=== PATIENT | female | born 1975 | race Caucasian/White ===

== ENCOUNTER 2019-04-26 02:35 | Emergency (ER) | payer SELFPAY ==
[~2019-04-26] VITALS: Ht 167.6 cm; Wt 99.8 kg
[2019-04-26 02:40] VITALS: BP 113/80
--- NOTE | 2019-04-26 02:53 | NUR ---
PT TAKEN TO BED 11
--- NOTE | 2019-04-26 03:07 | NUR ---
43 Y/O F SAMO[place]-SPEAKING ONLY, PRESENTS TO THE ED C/O LEFT FACIAL PAIN 8/10 X 3 DAYS. PT DENIES ANY TRAUMA OR INJURIES. NO FACIAL DROOP NOTED, PUPILS REACTIVE, NO TROUBLE SPEAKING, SPEECH IS CLEAR. STEADY GAIT. PT ALSO STATES BEING CONGESTED X 2 WEEKS. PT DENIES COUGH, FEVER, N/V/D. BED IN LOWEST POSITION, SIDE RAIL UP X1. HX: DIABETES, BS: 259 ALLERGIES: NKA
[2019-04-26] MEDS ORDERED: KETOROLAC 30 MG/ML VIAL IM ONE (03:15)
--- NOTE | 2019-04-26 03:28 | NUR ---
PT TRANSPORTED TO CT VIA WHEELCHAIR.
--- NOTE | 2019-04-26 03:48 | NUR ---
PT RETURNED BACK FROM CT VIA W/C.
--- NOTE | 2019-04-26 04:32 | NUR ---
PT RESTING IN BED, NO RESPIRATORY DISTRESS NOTED. BED IN LOWEST POSITION, SIDE RAIL UP X1. NO NEW CONCERNS AT THIS TIME. WILL CONTINUE TO MONITOR.
[2019-04-26] MEDS ORDERED: cefTRIAXone 1,000 MG in LIDOCAINE MPF 1% 2.1 ML IM ONE (05:10)
[2019-04-26] MEDS ORDERED: cefTRIAXone 1,000 MG VIAL ONE (05:12)
[2019-04-26] MEDS ORDERED: LIDOCAINE MPF 1% 5 ML ONE (05:13)
[2019-04-26 05:50] VITALS: BP 120/74
--- NOTE | 2019-04-26 05:51 | NUR ---
Patient discharged with v/s stable. Written and verbal after care instructions given and explained. Patient alert, oriented and verbalized understanding of instructions. Ambulatory with steady gait. All questions addressed prior to discharge. ID band removed. Patient advised to follow up with PMD. Rx of AFRIN, NAPROSYN, PREDNISONE, AUGMENTIN given. Patient educated on indication of medication including possible reaction and side effects. Opportunity to ask questions provided and answered.
== END 2019-04-26 05:51 | disposition home or self-care (01) ==
LOC: MED 02:35
DX: J01.90 Acute sinusitis, unspecified (principal); E11.9 Type 2 diabetes mellitus without complications
CPT/HCPCS: 70486; 81025; 96372; 99284; J0696; J1885; J2001

== ENCOUNTER 2023-02-11 14:11 | Emergency (ER) | payer MEDICAID ==
[~2023-02-11] VITALS: Ht 167.6 cm; Wt 90.7 kg
[2023-02-11 14:25] VITALS: BP 116/87; PULSE 88; RESP 18; TEMP 97; O2SAT 98
[2023-02-11] MEDS ORDERED: NACL 0.9% 1,000 ML IV SCH (14:40)
[2023-02-11] MEDS ORDERED: ONDANSETRON 4 MG/2 ML VIAL IVP ONE (14:40)
[2023-02-11] MEDS ORDERED: KETOROLAC 30 MG/ML VIAL IVP ONE (14:40)
[2023-02-11 14:54] VITALS: BP 116/87; TEMP 97
[2023-02-11 15:05] VITALS: O2SAT 98
[2023-02-11 15:12] LABS: BASOPHILS # (AUTO) 0.1 K/uL (0.00-0.22); BASOPHILS % (AUTO) 0.5 % (0.0-2.0); EOSINOPHILS # (AUTO) 0.1 K/uL (0-0.4); EOSINOPHILS % (AUTO) 1.1 % (0.0-4.0); HEMATOCRIT 36.5 % (36-48); HEMOGLOBIN 12.1 g/dL (12.0-16.0); LYMPHOCYTES # (AUTO) 3.9 K/uL (2.5-16.5); LYMPHOCYTES % (AUTO) 36.7 % (20.5-51.1); MEAN CORPUSCULAR HEMOGLOBIN 26 pg (27-31); MEAN CORPUSCULAR HGB CONC 33 g/dL (33-37); MEAN CORPUSCULAR VOLUME 77.9 fL (80-94); MONOCYTES # (AUTO) 0.6 K/uL (0.8-1.0); MONOCYTES % (AUTO) 5.9 % (1.7-9.3); NEUTROPHILS # (AUTO) 5.9 K/uL (1.8-7.7); NEUTROPHILS % (AUTO) 55.8 % (42.2-75.2); PLATELET COUNT (AUTO) 203 K/uL (140-450); RED BLOOD CELL COUNT(AUTO) 4.69 MIL/uL (4.20-5.40); RED CELL DISTRIBUTION WIDTH 14.7 % (11.6-13.7); WHITE BLOOD COUNT (AUTO) 10.5 K/uL (4.8-10.8)
[2023-02-11 15:28] LABS: ANION GAP 15.1 (8-16); CALCIUM 8.9 mg/dL (8.5-10.1); CARBON DIOXIDE 23.4 mmol/L (21-32); CREATININE 0.6 mg/dL (0.6-1.3); POTASSIUM 3.5 mmol/L (3.5-5.1)
[2023-02-11 15:35] LABS: ALBUMIN 3.2 g/dL (3.4-5.0); BILIRUBIN,DIRECT 0.1 mg/dL (0.0-0.3); TOTAL BILIRUBIN 0.5 mg/dL (0.0-1.0); TOTAL PROTEIN, SERUM 8.8 g/dL (6.4-8.2)
[2023-02-11] MEDS ORDERED: OMEP20EC11 PO (17:19)
[2023-02-11 18:52] LABS: APPEARANCE,URINE CLEAR (CLEAR); BILIRUBIN,URINE NEGATIVE (NEGATIVE); BLOOD, URINE NEGATIVE (NEGATIVE); COLOR,URINE YELLOW (YELLOW); LEUKOCYTE ESTERASE ,URINE TRACE (NEGATIVE); NITRITE, URINE NEGATIVE (NEGATIVE); PROTEIN,URINE NEGATIVE (NEGATIVE); UGLUCOSE NEGATIVE (NEGATIVE); UROBILINOGEN,URINE 0.2 EU/dL (0.2 - 1)
[2023-02-11 18:54] LABS: BACTERIA,URINE 0-2 /HPF (None Seen); MUCUS,URINE None Seen /LPF (None Seen); RBC,URINE 0 /HPF (0-5); SQUAMOUS EPITHELIAL CELL,UR 0-3 (FEW) /LPF (0-3 (FEW)); WBC,URINE 0-5 /HPF (0-5)
[2023-02-11 19:43] VITALS: PULSE 79; RESP 15; O2SAT 100
== END 2023-02-11 19:41 | disposition home or self-care (01) ==
LOC: MED 14:11
DX: K29.70 Gastritis, unspecified, without bleeding (principal); E11.9 Type 2 diabetes mellitus without complications; Z79.899 Other long term (current) drug therapy
CPT/HCPCS: 36415; 74176; 76705; 80048; 80076; 81001; 81025; 82150; 83690; 85025; 96361; 96374; 96375; 99285; J1885; J2405; J7030; Q0092